=== PATIENT | female | born 1995 | race Caucasian/White ===

== ENCOUNTER → 2024-09-25 17:37 | Outpatient (REF) | payer BC, SELFPAY | LOC: RAD 17:37 | PROVIDERS: ATTENDING PHYSICIAN Obstetrics & Gynecology | DX: O30.009 Twin pregnancy, unspecified number of placenta and unspecified number of amniotic sacs, unspecified trimester (principal) | CPT/HCPCS: 76801; 76817 ==

== ENCOUNTER 2024-09-29 06:16 | Day surgery (SDC) | payer BC, SELFPAY ==
[2024-09-29 12:33] VITALS: BMI 34.4
[2024-09-29 12:34] VITALS: BP 127/88; BMI 34.4
[2024-09-29] MEDS: VIBRAMYCIN 270 MG IV (12:49)
[2024-09-29] MEDS: TYLENOL 1000 MG PO (12:49)
[2024-09-29] MEDS: NORMOSOL-R/PLASMALYTE-A 1000 IV (12:50)
[2024-09-29 13:55] VITALS: BP 118/78; BP 127/88
[2024-09-29 14:00] VITALS: BP 115/75
[2024-09-29] MEDS: DILAUDID 0.25 MG IV (14:10)
[2024-09-29 14:40] VITALS: BP 112/81
[2024-09-29 15:10] VITALS: BP 113/76
[2024-09-29 15:40] VITALS: BP 122/74
--- NOTE | 2024-09-29 17:01 | OR.RPT ---
Operative Report
Operative Report
Preop diagnosis: missed
Postop diagnosis: same
Surgeon: Elke
Procedure: dilation and evacuation
Anesthesia: General
EBL: 200mL
Findings: Bimanual exam revealed anteverted uterus 8-9wk size. Normal appearing cervix without lesions or masses.
Complications: none
Pathology: products of conception
Indication: Patient is a 29yo who presents for dilation and evacuation. Patient had pelvic ultrasound 09/25/2024, for spotting and monochorionic, diamniotic twins. No heart tones were seen on ultrasound. poles consistent with 7
weeks 6 days and by dates she should be 10 weeks. Findings were consistent with a missed . She was counseled on options including expectant, medical and surgical management. She desired surgical management with dilation and evacuation.
Risks, benefits and alternatives were discussed and all questions answered prior to proceeding. Consents were signed.
Procedure:
Patient was taken to the operating room and placed under general anesthesia. She was placed in the dorsal lithotomy position with Lionel type stirrups. She was given 200mg Doxycycline IV prior to the procedure for antibiotic prophylaxis. She was
prepped and draped in the normal sterile fashion. The bladder was drained with a straight catheter yielding 50cc of clear yellow urine. A Meyer retractor was placed in the posterior aspect of the vagina and the anterior aspect of the vagina revealing
good visualization of the cervix. The anterior lip of the cervix was grasped with a single tooth tenaculum. The cervix was sequentially dilated to accommodate a 8mm curved rigid suction curette. A 8mm curved rigid suction curette was introduced to
the fundus. Vacuum was applied until it was in the green. A suction curettage was then performed with a rotational motion in all quadrants of the uterus. Multiple passes were performed until all products of conception were removed. Care was taken
not to introduce the suction curette with suction applied. There were products of conception at the external cervical os which were removed with ring forceps. A few more passes were taken with the suction curette until all products of conception
were removed. The tenaculum was removed from the anterior lip of the cervix. Small amount of oozing noted at the tenaculum site that was controlled with holding pressure. Hemostasis was then noted. All instruments were removed from the vagina. All
sponge and instrument counts were correct times 2. Patient was taken to PACU in stable condition.
== END 2024-09-29 15:40 | disposition home or self-care (01) ==
LOC: SDS 06:16
PROVIDERS: ATTENDING PHYSICIAN Student in an Organized Health Care Education/Training Program
DX: O02.1 Missed abortion (principal); N85.4 Malposition of uterus
CPT/HCPCS: 59820; 88305; 86850; 86900; 86901